=== PATIENT | male | born 2000 | race Caucasian/White ===

== ENCOUNTER → 2023-06-20 | Outpatient (CLI) | payer OTHER | LOC: M WUC 15:27 | PROVIDERS: ATTEND Physician Assistant | DX: S46.811A Strain of other muscles, fascia and tendons at shoulder and upper arm level, right arm, initial encounter (principal); S29.012A Strain of muscle and tendon of back wall of thorax, initial encounter; Y92.9 Unspecified place or not applicable; Y93.9 Activity, unspecified ==

== ENCOUNTER 2024-02-26 11:14 | Emergency (ER) | payer OTHER ==
[~2024-02-26] VITALS: Ht 175.3 cm; Wt 79.6 kg
[2024-02-26 15:00] VITALS: BP 141/77; TEMP 98.6; O2SAT 100
== END 2024-02-26 16:09 | disposition left against medical advice (07) ==
LOC: M ED 11:14
DX: Z53.21 Procedure and treatment not carried out due to patient leaving prior to being seen by health care provider (principal)

== ENCOUNTER → 2024-03-07 | Outpatient (REF) | payer OTHER ==
[2024-03-07 12:02] LABS: SEMEN APPEARANCE OPAQUE (OPAQUE); SEMEN VISCOSITY LIQUID (LIQUID); SEMEN VOLUME 3.5 ml (2.0-5.0); SPERM CONCENTRATION 2.2 M/ml (>=15.0); WBC CONCENTRATION <=1 M/ml (<=1 M/ml)
== END ==
LOC: M LAB REF 11:42
PROVIDERS: ATTEND General Practice
DX: N46.8 Other male infertility (principal)

== ENCOUNTER → 2024-07-02 | Outpatient (CLI) | payer OTHER ==
[2024-07-02 13:50] LABS: SEMEN APPEARANCE OPAQUE (OPAQUE); SEMEN VISCOSITY LIQUID (LIQUID); SEMEN VOLUME 4.3 ml (2.0-5.0); SEMEN pH 8.5 (7.0-8.0); SPERM CONCENTRATION 9.9 M/ml (>=15.0); WBC CONCENTRATION <=1 M/ml (<=1 M/ml)
[2024-07-02 13:51] LABS: TOTAL PROGRESSIVE SPERM 0 M/Ejac.
== END ==
LOC: M LAB 12:13
PROVIDERS: ATTEND Specialist
DX: N64.9 Disorder of breast, unspecified (principal)

== ENCOUNTER 2024-09-04 11:06 | Emergency (ER) | payer OTHER ==
[~2024-09-04] VITALS: Ht 175.3 cm; Wt 90.0 kg
[2024-09-04 12:01] LABS: BASO % 0.4 % (0.0-1.0); EOS % 0.1 % (0.0-3.0); HEMATOCRIT 44.3 % (42.0-52.0); HEMOGLOBIN 15.1 g/dl (13.5-17.5); LYMPH # 1.5 10^3/uL (1.5-5.0); LYMPH % 18.7 % (24.0-44.0); MEAN CORPUSCULAR HEMOGLOBIN 29.5 pg (27.0-33.0); MEAN CORPUSCULAR HGB CONC 34.1 g/dl (32.0-36.5); MEAN CORPUSCULAR VOLUME 86.5 fl (80.0-96.0); MONO # 0.5 10^3/uL (0.0-0.8); MONO % 6.2 % (2.0-8.0); NEUTROPHILS % 74.5 % (36.0-66.0); PLATELET COUNT, AUTOMATED 181 10^3/uL (150-450); RED BLOOD COUNT 5.12 10^6/uL (4.30-6.10); WHITE BLOOD COUNT 8.1 10^3/uL (4.0-10.0)
[2024-09-04 12:18] LABS: LIPASE 31 U/L (12-53)
[2024-09-04 12:20] LABS: ALBUMIN 4.1 G/DL (3.2-5.2); ALKALINE PHOSPHATASE 69 U/L (40-129); ALT/SGPT 31 U/L (7.0-40); AST/SGOT 21 U/L (<34); BILIRUBIN,DIRECT 0.2 MG/DL (<0.4); BILIRUBIN,TOTAL 0.6 MG/DL (0.3-1.2); BLOOD UREA NITROGEN 17 MG/DL (9-23); CALCIUM LEVEL 9.3 MG/DL (8.5-10.1); CARBON DIOXIDE LEVEL 32 MMOL/L (20-31); CHLORIDE LEVEL 106 MMOL/L (98-107); CREATININE FOR GFR 0.99 MG/DL (0.70-1.30); GLOMERULAR FILTRATION RATE > 90.0 (>60); GLUCOSE, FASTING 87 MG/DL (60-100); POTASSIUM SERUM 3.6 MMOL/L (3.5-5.1); SODIUM LEVEL 144 MMOL/L (136-145); TOTAL PROTEIN 7.1 G/DL (5.7-8.2)
[2024-09-04 12:22] LABS: FREE T4 0.99 NG/DL (0.89-1.76); THYROID STIMULATING HORMONE 4.076 uIU/ML (0.55-4.78)
[2024-09-04 13:30] VITALS: TEMP 98.8; O2SAT 100
[2024-09-04 14:21] VITALS: BP 160/98
[2024-09-04] MEDS ORDERED: HYDR-3490 PO (15:18)
== END 2024-09-04 15:30 | disposition home or self-care (01) ==
LOC: M ED 11:06
DX: I10 Essential (primary) hypertension (principal); G47.33 Obstructive sleep apnea (adult) (pediatric); F41.9 Anxiety disorder, unspecified; F32.A Depression, unspecified; F17.290 Nicotine dependence, other tobacco product, uncomplicated; Z79.899 Other long term (current) drug therapy